=== PATIENT | male | born 1990 | race Caucasian/White ===

== ENCOUNTER 2020-06-08 15:47 | Emergency (ER) | payer BC ==
--- NOTE | 2020-06-08 16:17 | ERPHSYRPT ---
- History of Present Illness Historian: patient Patient Subjective Stated Complaint: PT states "I have had this problem on and off since october. [facility] to [facility] and they did ct, hydescan, mri. I have seen Dr. Nick MICHELLE in [facility] and I am scheduled for a colonoscopy on monday. I am just still hurting." Triage Nursing Assessment: PT presented alert and oriented X 3, skin pwd Pt am bulates with an uprigth steady gait, able to speak in clear full sentences. pt in no apparent respiratory distress. Physician History: 29 yo wm w RUQ pain since 11/16. Pain is 2/10 now and at its worst. He has seen Dr. Wilson/Dr. Leung/Dr. Romero about the pain w neg US/CT/HIDA/MRI. He is scheduled for a colonoscopy in the near future. Pt has had N/V wo diarrhea/hemat emesis/melena/hematochezia/fever/dysuria/hematuria. Timing/Duration: other (11/16) Quality: cramping Abdominal Pain Onset Location: RUQ Pain Radiation: no radiation Severity of Pain-Max: mild Severity of Pain-Current: mild Modifying Factors: Improves With: nothing Associated Symptoms: loss of appetite, nausea, vomiting, No back, No chest pain, No diaphoresis, No diarrhea, No fever/chills, No fatigue, No headache, No heartburn, No neck pain, No rash, No shortness of breath, No syncope, No testicu lar pain Previous symptoms: same symptoms as today Allergies/Adverse Reactions: No Known Drug Allergies Allergy (Verified 06/08/20 15:58) Home Medications: Dicyclomine HCl 20 mg [Bentyl 20 mg] 20 mg PO DAILY 06/08/20 [History] Lisinopril 5 mg [Zestril 5 MG] 5 mg PO DAILY 06/08/20 [History] Hx Tetanus, Diphtheria Vaccination/Date Given: Yes Hx Influenza Vaccination/Date Given: No Hx Pneumococcal Vaccination/Date Given: No Immunizations Up to Date: Yes Travel Risk - International Travel Have you traveled outside of the country in past 3 weeks: No - Coronavirus Screening Are you exhibiting any of the following symptoms?: No Close contact with a COVID-19 positive Pt in past 14-21 Days: No - Vaccine Status Have you recieved a Covid-19 vaccination: No - Review of Systems Constitutional: No Symptoms Eyes: No Symptoms Ears, Nose, & Throat: No Symptoms Respiratory: No Symptoms Cardiac: No Symptoms Genitourinary Symptoms: No Symptoms Musculoskeletal: No Symptoms Skin: No Symptoms Neurological: No Symptoms Psychological: No Symptoms Endocrine: No Symptoms Hematologic/Lymphatic: No Symptoms Immunological/Allergic: No Symptoms - Past Medical History Pertinent Past Medical History: Yes Neurological History: No Pertinent History Cardiac History: No Pertinent History Respiratory History: No Pertinent History Endocrine Medical History: No Pertinent History Musculoskeletal History: No Pertinent History Other Medical History: He notes possible R femoral head deformity too. - Past Surgical History Past Surgical History: Yes Other Surgical History: left hip - Social History Smoking Status: Never smoker Exposure to second hand smoke: No Drug Use: none Patient Lives Alone: No Significant Family History: no pertinent family hx - Nursing Vital Signs Nursing Vital Signs: Initial Vital Signs Temperature 98.5 F 06/08/20 15:52 Pulse Rate 83 06/08/20 15:52 Respiratory Rate 20 06/08/20 15:52 Blood Pressure 169/104 06/08/20 15:52 O2 Sat by Pulse Oximetry 99 06/08/20 15:52 Pain Scale Pain Intensity 2 - Physical Exam General Appearance: no apparent distress Eye Exam: PERRL/EOMI, eyes nml inspection Ears, Nose, Throat Exam: normal ENT inspection, TMs normal, pharynx normal, moist mucous membranes Neck Exam: normal inspection, non-tender, supple, full range of motion, No meningismus, No mass, No Brudzinski, No Kernig's Respiratory Exam: normal breath sounds, lungs clear, airway intact, No respiratory distress Cardiovascular Exam: regular rate/rhythm, normal heart sounds, normal peripheral pulses, No murmur Gastrointestinal/Abdomen Exam: soft, normal bowel sounds, No tenderness, No distention Back Exam: normal inspection, normal range of motion, No CVA tenderness Extremity Exam: normal inspection, normal range of motion Neurologic Exam: alert, oriented x 3, cooperative, 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 tested, normal mood/affect, nml cerebellar function, sensation nml, No motor deficits, No sensory deficit Skin Exam: normal color, warm, dry Lymphatic Exam: adenopathy SpO2 Interpretation: normal SpO2: 99 Ordered Tests: Active Orders 24 hr Category Date Time Status AMYLASE Stat Lab 06/08/20 15:25 Completed CBC W DIFF Stat Lab 06/08/20 15:25 Completed CMP Stat Lab 06/08/20 15:25 Completed LIPASE Stat Lab 06/08/20 15:25 Completed UA W/RFX UR CULTURE Stat Lab 06/08/20 16:46 Completed Lab/Rad Data: Laboratory Result Diagrams 06/08/20 15:25 06/08/20 15:25 Laboratory Results 06/08/20 06/08/20 06/08/20 Range/Units 16:46 15:25 15:25 WBC 8.1 (4.0-10.5) K/mm3 RBC 5.19 (4.1-5.6) M/mm3 Hgb 15.6 (12.5-18.0) gm/dl Hct 45.1 (42-50) % MCV 86.9 (78-100) fl MCH 30.1 (26-32) pg MCHC 34.6 (32-36) g/dl RDW 12.4 (11.5-14.0) % Plt Count 242 (150-450) K/mm3 MPV 9.6 (7.5-11.0) fl Gran % 64.3 (36.0-66.0) % Eos # (Auto) 0.13 (0-0.5) Absolute Lymphs (auto) 2.07 (1.0-4.6) Absolute Monos (auto) 0.66 (0.0-1.3) Lymphocytes % 25.7 (24.0-44.0) % Monocytes % 8.2 (0.0-12.0) % Eosinophils % 1.6 (0.00-5.0) % Basophils % 0.2 (0.0-0.4) % Absolute Granulocytes 5.17 (1.4-6.9) Basophils # 0.02 (0-0.4) Sodium 139 (137-145) mmol/L Potassium 4.2 (3.5-5.1) mmol/L Chloride 102 (98-107) mmol/L Carbon Dioxide 30 (22-30) mmol/L Anion Gap 11.5 (5-15) MEQ/L BUN 11 (9-20) mg/dL Creatinine 1.00 (0.66-1.25) mg/dL Estimated GFR > 60.0 ML/MIN Glucose 93 (74-106) mg/dL Calcium 9.4 (8.4-10.2) mg/dL Total Bilirubin 2.30 H (0.2-1.3) mg/dL AST 30 (17-59) U/L ALT 33 (0-50) U/L Alkaline Phosphatase 62 (38-126) U/L Serum Total Protein 7.7 (6.3-8.2) g/dL Albumin 4.5 (3.5-5.0) g/dL Amylase 54 (30-110) U/L Lipase 115 (23-300) U/L Urine Color STRAW (YELLOW) Urine Appearance CLEAR (CLEAR) Urine pH 7.0 (5-6) Ur Specific [place] 1.006 (1.005-1.025) Urine Protein NEGATIVE (Negative) Urine Ketones NEGATIVE (NEGATIVE) Urine Blood NEGATIVE (0-5) Basil/ul Urine Nitrite NEGATIVE (NEGATIVE) Urine Bilirubin NEGATIVE (NEGATIVE) Urine Urobilinogen NEGATIVE (0-1) mg/dL Ur Leukocyte Esterase NEGATIVE (NEGATIVE) Urine WBC (Auto) NONE (0-5) /HPF Urine RBC (Auto) NONE (0-2) /HPF U Epithel Cells (Auto) NONE (FEW) /HPF Urine Bacteria (Auto) NONE (NEGATIVE) /HPF Urine Culture Reflexed NO (NO) Urine Glucose NEGATIVE (NEGATIVE) mg/dL - Departure Departure Disposition: Home Clinical Impression: Abdominal pain Condition: Stable Critical Care Time: No Referrals: OCTAVIO WILSON [Primary Care Provider] - Instructions: Acute Abdomen (Belly Pain), Adult (DC) Additional Instructions: 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
[2020-06-08 16:32] LABS: Absolute Neutrophil Ct (ANC) 5.17 (1.4-6.9); BASOPHIL % 0.2 % (0.0-0.4); Basophil (Absolute #) 0.02 (0-0.4); Eosinophil % 1.6 % (0.00-5.0); Eosinophil (Absolute #) 0.13 (0-0.5); Hematocrit 45.1 % (42-50); Hemoglobin 15.6 gm/dl (12.5-18.0); Lymphocyte (Absolute #) 2.07 (1.0-4.6); Lymphocytes % 25.7 % (24.0-44.0); Mean Cell Volume 86.9 fl (78-100); Mean Corpuscular Hemoglobin 30.1 pg (26-32); Mean Corpuscular Hgb Concent. 34.6 g/dl (32-36); Mean Platelet Volume 9.6 fl (7.5-11.0); Monocyte (Absolute #) 0.66 (0.0-1.3); Monocytes % 8.2 % (0.0-12.0); Neutrophil % 64.3 % (36.0-66.0); Platelet Count 242 K/mm3 (150-450); Red Blood Count 5.19 M/mm3 (4.1-5.6); Red Cell Distribution Width 12.4 % (11.5-14.0); White Blood Count 8.1 K/mm3 (4.0-10.5)
[2020-06-08 16:49] LABS: ALBUMIN 4.5 g/dL (3.5-5.0); ALKALINE PHOSPHATASE 62 U/L (38-126); AMYLASE 54 U/L (30-110); ANION GAP 11.5 MEQ/L (5-15); BLOOD UREA NITROGEN 11 mg/dL (9-20); CHLORIDE 102 mmol/L (98-107); Calcium 9.4 mg/dL (8.4-10.2); Carbon Dioxide 30 mmol/L (22-30); EST GLOMERULAR FILTRATION RATE > 60.0 ML/MIN; Glucose 93 mg/dL (74-106); LIPASE 115 U/L (23-300); Potassium 4.2 mmol/L (3.5-5.1); SGOT/AST 30 U/L (17-59); SGPT/ALT 33 U/L (0-50); SODIUM 139 mmol/L (137-145); Total Protein 7.7 g/dL (6.3-8.2)
[2020-06-08 16:54] LABS: Appearance CLEAR (CLEAR); Bilirubin NEGATIVE (NEGATIVE); Blood NEGATIVE Ery/ul (0-5); Glucose NEGATIVE (NEGATIVE); Ketones NEGATIVE (NEGATIVE); Leukocyte Esterase NEGATIVE (NEGATIVE); Nitrite NEGATIVE (NEGATIVE); Protein,Urine Dip NEGATIVE (Negative); Specific Gravity 1.006 (1.005-1.025); Urobilinogen NEGATIVE mg/dL (0-1)
[2020-06-08 17:11] VITALS: BP 127/73; PULSE 74
[2020-06-08 17:16] VITALS: O2SAT 99
== END 2020-06-08 17:37 | disposition home or self-care (01) ==
LOC: ED 15:47
DX: R10.9 Unspecified abdominal pain (principal)
CPT/HCPCS: 36000; 36415; 80053; 81001; 82150; 83690; 85025; 99284

== ENCOUNTER 2021-06-21 08:43 | Day surgery (SDC) | payer BC ==
--- NOTE | 2021-06-21 08:05 | HP ---
DATE OF SURGERY: 06/21/2021 HISTORY OF PRESENT ILLNESS: The patient is a 30-year-old with mid abdominal aches to collar bone, had some burning sensation more so recently, worse on an empty stomach, worse after eating. Last colonoscopy in the last year or so. He had been diagnosed with celiac disease in the past. He had lymph node that is followed by a cancer team and they felt it was benign. He had a large lymph node at that time. They offered excision but they were more interested in his epigastric pain and reflux. PAST MEDICAL HISTORY: Celiac disease. Hypertension. PAST SURGICAL HISTORY: Left hip surgery in the past. MEDICATIONS: Lisinopril, sucralfate. ALLERGIES: NKDA. FAMILY HISTORY: Hypertension. SOCIAL HISTORY: Denies smoking. REVIEW OF SYSTEMS: Fourteen systems reviewed. No chest pain or palpitations. Other systems negative or noncontributory as above and per preadmission questionnaire. PHYSICAL EXAMINATION: GENERAL: No acute distress. HEENT: Sclerae nonicteric. NECK: No JVD. CHEST: Equal excursion, nonlabored breathing. CVS: Regular rate and rhythm. ABDOMEN: Soft. No peritoneal signs. EXTREMITIES: No significant edema. NEURO: Alert, oriented, moving extremities symmetrically. PSYCH: Appropriate mood and affect. IMPRESSION: Some mid abdominal aches up to the collar bone. I feel he would benefit from EGD possible biopsy to evaluate for esophagitis, gastritis or other etiology. Risks and benefits explained in detail including but not limited to bleeding or infection, risk of bowel injury or perforation possibly requiring open procedure, risk of missed or nondiagnosis or incomplete exam possibly requiring barium swallow, other studies or procedures or other work up. He understands and agrees to the planned procedure, will proceed with EGD possible biopsy as an outpatient.
[2021-06-21] MEDS ORDERED: Lactated Ringers 1,000 ML IV ONE (09:53)
[2021-06-21] MEDS ORDERED: Lactated Ringers 1,000 ML IV SCH (10:00)
[2021-06-21] MEDS ORDERED: Versed 2 MG/2 ML Injection ONE (10:50)
[2021-06-21] MEDS ORDERED: DIPRIVAN 200 MG/20 ML IV ONE (10:50)
[2021-06-21 11:57] VITALS: O2SAT 97
[2021-06-21 11:58] VITALS: BP 143/82; PULSE 74
--- NOTE | 2021-06-21 13:29 | OP ---
SURGERY DATE/TIME: 06/21/2021 1051 PREOPERATIVE DIAGNOSIS: History of mid abdominal pain radiating to the collar bone of unclear etiology, need for upper endoscopy. POSTOPERATIVE DIAGNOSES: 1) Minimal to mild gastritis. 2) Small gastric polyp. PROCEDURES: 1) EGD with cold biopsy of small bowel for histology. 2) Cold biopsy of antrum to evaluate for Helicobacter pylori. 3) Cold biopsy small gastric polyp in the fundus. 4) Cold biopsy of distal esophagus to evaluate for very short segment of distal early esophagitis versus normal variation of gastroesophageal junction. 5) Random cold biopsy mid esophagus to evaluate for eosinophilic esophagitis. SURGEON: Dr. Higinio Sen. ANESTHESIA: MAC. ESTIMATED BLOOD LOSS: Minimal. INDICATIONS: As noted above. Risks and benefits explained in detail and not limited to and consent obtained. DESCRIPTION OF PROCEDURE AND FINDINGS: The patient is taken to the endoscopy room. MAC anesthesia introduced. After official time out and no disagreement with planned procedure, a bite block positioned. Video gastroscope easily passed down the esophagus through the patent pylorus to the third portion of the duodenum. Third, second, first portion of duodenum fairly unremarkable but given his complaints of unclear etiology cold biopsy taken for histology from the small bowel. Good hemostasis noted. Scope pulled back in the stomach. He had some gastric erythema and some signs of early minimal to mild gastritis. No evidence of any ulcers or large masses. Cold biopsy taken in the antrum to evaluate for Helicobacter pylori. There was no visible gastric reflux although the pylorus is widely open. On retroflex the gastroesophageal junction is snug against the scope. No signs of any hiatal hernia. The scope pulled back. In the proximal third of the stomach near the fundus a small polyp is removed with cold biopsy forceps. Good hemostasis noted. The scope pulled back. The gastroesophageal junction is about 40 cm. Whether there is a short segment of a millimeter of early distal esophagitis versus normal variation of gastroesophageal junction cold biopsy is taken. Good hemostasis noted. There were no signs of any erosions or masses. The scope pulled back in the esophagus. Given his symptom complaint, random cold biopsies taken to evaluate for eosinophilic esophagitis. Good hemostasis noted. No signs of any other mucosal lesions in the esophagus. The scope is withdrawn. There were no immediate complications. Findings discussed with the family out in the waiting area.
== END 2021-06-21 12:02 | disposition home or self-care (01) ==
LOC: SDC 08:43
PROVIDERS: ATTEND Surgery
DX: K29.70 Gastritis, unspecified, without bleeding (principal); K31.7 Polyp of stomach and duodenum; R10.84 Generalized abdominal pain; I10 Essential (primary) hypertension; K90.0 Celiac disease
CPT/HCPCS: J2250; J2704